=== PATIENT | male | born 1970 | race Caucasian/White ===

== ENCOUNTER 2017-01-25 10:13 | Emergency (ER) | payer MEDICAID ==
[~2017-01-25] VITALS: Ht 172.7 cm; Wt 86.5 kg
[~2017-01-25 10:13] MED LIST: ACET500C5 PO; CEPH-443 PO; TRAM50TA2 PO
[2017-01-25 10:19] VITALS: Ht 172.7 cm; Wt 86.5 kg
--- NOTE | 2017-01-25 10:55 | ERD ---
ER Documentation Chief Complaint Date/Time DATE: 01/25/17 TIME: 10:54 Chief Complaint Pt here for suture removal from upper lip. HPI 46-year-old male comes in for suture removal from a repair that was done a week ago. Patient states it was an injury, was no loss of consciousness, no tooth loss. He has not had any pain, drainage or fevers or chills. ROS All systems reviewed and are negative except as per history of present illness. Medications Home Meds Active Scripts Cephalexin* (Keflex*) 500 Mg Capsule, 500 MG PO QID for 5 Days, CAP Prov:[employer] 01/20/17 Tramadol HCl (Tramadol HCl) 50 Mg Tablet, 50 MG PO Q6 Y for SEVERE PAIN LEVEL 7- 10, #20 TAB Prov:[employer] 01/20/17 Acetaminophen* (Tylophen*) 500 Mg Capsule, 1 CAP PO Q6H Y for PAIN AND OR ELEVATED TEMP, #20 CAP Prov:[employer] 01/20/17 Reported Medications [none] Unknown Strength No Conflict Check 01/19/17 Allergies Allergies: Coded Allergies: No Known Allergy (Unverified , 01/19/17) PMhx/Soc History of Surgery: Yes (hernia repair) Anesthesia Reaction: No Hx Neurological Disorder: No Hx Respiratory Disorders: No Hx Cardiac Disorders: No Hx Psychiatric Problems: No Hx Miscellaneous Medical Probl: Yes (hernia) Hx Alcohol Use: Yes Hx Substance Use: No Hx Tobacco Use: No Smoking Status: Never smoker Physical Exam Vitals Vital Signs Date Time Temp Pulse Resp B/P Pulse Ox O2 Delivery O2 Flow Rate FiO2 01/25/17 10:19 98.1 75 18 135/86 100 Physical Exam General: Well-developed, well-nourished. The patient appears in no acute distress. HEENT: Head is normocephalic, atraumatic. No scleral icterus. 3 simple interrupted sutures on the upper lip over laceration crossing the vermilion border, there is no dehiscence, erythema or drainage. Neck: Supple. Nontender. Lungs: Clear to auscultation. Normal air movement. Heart: Regular rate and rhythm. S1 and S2 are normal. No murmurs, gallops, or rubs. Abdomen: Nondistended. Extremities: No clubbing or cyanosis. Moving extremities x 4. No weakness. Neurologic: Alert and oriented 3. No focal deficits. Normal speech and gait. Skin: Normal turgor. No rash or lesions. Procedures/MDM Suture Removal by me: Sutures removed with tweezers and scissors without incident. Wound shows no evidence of infection, foreign body, neurologic injury, vascular injury, open joint or tendon laceration. Patient to follow up PRN.' Patient's blood pressure was elevated (>120/80) but appears stable without evidence of hypertension emergency or urgency. The patient was counseled about the risks of hypertension and urged to pursue outpatient monitoring and therapy within a week with their primary care physician. Departure Diagnosis: Primary Impression: Encounter for removal of sutures Condition: Good Patient Instructions: Suture Removal, No Complication GAYLE RITTER PA-C Jan 25, 2017 10:55
== END 2017-01-25 10:49 | disposition home or self-care (01) ==
LOC: FTE 10:13
DX: Z48.02 Encounter for removal of sutures (principal)
CPT/HCPCS: 99281